=== PATIENT | male | born 1980 | race Caucasian/White ===

== ENCOUNTER 2021-10-07 08:02 | Emergency (ER) | payer OTHER ==
[~2021-10-07] VITALS: Ht 180.3 cm; Wt 65.8 kg
[~2021-10-07 08:02] MED LIST: CIPRO500 MG PO; METRONIDAZOLE500 MG PO; ONDANSETRON ODT4 MG PO; PERCOCET 7.5/321 TAB PO
[2021-10-07 12:19] LABS: BASOPHIL 0.4 % (0-2); EOSINOPHIL 0.1 % (0-5); HCT 49.6 % (42.0-52.0); HGB 17.1 g/dl (13.2-18.0); LYMPHOCYTE 9.5 % (15-48); MCH 31.3 pg (25.0-31.0); MCHC 34.5 g/dL (32.0-36.0); MCV 90.8 fL (78.0-100.0); MONOCYTE 8.9 % (0-12); MPV 10.9 fL (6.0-9.5); NEUTROPHIL 80.7 % (41-80); NRBC 0; PLT 354 K/uL (150-400); RBC 5.46 M/uL (4.70-6.00); RDW 11.9 % (11.5-14.0); WBC 11.8 K/uL (4.0-10.5)
[2021-10-07 12:51] LABS: ALBUMIN 4.8 g/dL (3.4-5.0); BILIRUBIN - TOTAL 0.5 mg/dL (0.2-1.0); BUN/CREAT RATIO (CALC) 18.2 RATIO; CREATININE 1.1 mg/dL (0.67-1.17); TOTAL PROTEIN 7.8 g/dL (6.4-8.2)
[2021-10-07 19:06] LABS: BILIRUBIN 1+ mg/dL (NEGATIVE); BLOOD TRACE-INTACT Ery/uL (NEGATIVE); CLARITY CLEAR (CLEAR); COLOR YELLOW (YELLOW); GLUCOSE (U) NORMAL (NORMAL); LEUKOCYTES NEGATIVE Leu/uL (NEGATIVE); NITRITE NEGATIVE (NEGATIVE); PROTEIN TRACE (LOW) mg/dL (NEGATIVE); UROBILINOGEN 0.2 mg/dL (0.2-1.0); pH 6.5 (5.0-9.0)
[2021-10-07 19:13] LABS: URINARY RBC RARE
== END 2021-10-09 07:52 | disposition other institution (70) ==
LOC: FER 08:02
PROVIDERS: Emergency Medicine
DX: K56.609 Unspecified intestinal obstruction, unspecified as to partial versus complete obstruction (principal); C18.4 Malignant neoplasm of transverse colon; Z20.822 Contact with and (suspected) exposure to COVID-19
CPT/HCPCS: 36415; 80053; 81001; 82150; 83690; 85025; C9113; J1170; J1885; J2060; J2270; J2405; J3010; J7030; J7120; Q9967; U0002